=== PATIENT | female | born 1970 | race Caucasian/White ===

== ENCOUNTER 2021-06-01 17:40 | Emergency (ER) | payer MEDICAID ==
[~2021-06-01] VITALS: Ht 160 cm; Wt 68.0 kg
[2021-06-01] MEDS: ONDANSETRON ODT 4 MG TAB.RAPDIS SL ONE (17:54)
[2021-06-01] MEDS ORDERED: ONDANSETRON ODT 4 MG TAB.RAPDIS ONE (18:00)
[2021-06-01] MEDS ORDERED: ACETAMINOPHEN 325 MG TABLET ONE (18:00)
[2021-06-01] MEDS ORDERED: IBUPROFEN 400 MG TABLET ONE (18:00)
[2021-06-01] MEDS ORDERED: HYDROCODONE/APAP 5-325MG TABLET ONE (18:01)
[2021-06-01] MEDS: IBUPROFEN 400 MG TABLET PO ONE (18:15)
[2021-06-01] MEDS: HYDROCODONE/APAP 5-325MG TABLET PO ONE (18:15)
[2021-06-01] MEDS: ACETAMINOPHEN 325 MG TABLET PO ONE (18:15)
--- NOTE | 2021-06-01 18:30 | NUR ---
[facility] officer at bedside.
[2021-06-01] MEDS ORDERED: OXYC-128 PO (18:36)
[2021-06-01] MEDS ORDERED: ONDA4TAB5 PO (18:36)
--- NOTE | 2021-06-01 18:54 | NUR ---
Patient discharged to home in stable condition. Written and verbal after care instructions given. Patient verbalizes understanding of instructions. Stressed follow up or return to ER for worsening s/s.pt says feels better, family member here to take the pt home.
[2021-06-01 18:55] VITALS: BP 128/59
== END 2021-06-01 18:56 | disposition home or self-care (01) ==
LOC: ER 17:40
DX: Z04.1 Encounter for examination and observation following transport accident (principal); M54.2 Cervicalgia
CPT/HCPCS: 70450; 71045; 72125; 72170; 73502; A4663; Q0162